=== PATIENT | female | born 1950 | race Caucasian/White ===

== ENCOUNTER 2023-09-25 12:19 | Inpatient (IN) | payer MEDICARE, OTHER ==
[2023-09-25 13:14] LABS: #Eosinphils 0.2 thou/uL (0.0-0.7); #Monocytes 0.7 thou/uL (0.11-0.59); %Basophils 0.6 % (0.0-1.0); %Eosinophils 2.6 % (0.0-10.0); %Lymphocytes 26.2 % (21.0-51.0); %Monocytes 9.9 % (0.0-10.0); %Neutrophils 60.4 % (42.0-75.0); Hematocrit 46.9 % (36.0-47.0); Hemoglobin 15.4 g/dL (12.0-16.0); Mean Corpuscular HGB CONC 32.8 g/dL (32.0-36.0); Mean Corpuscular Hemoglobin 28.8 pg (27.0-31.0); Mean Corpuscular Volume 87.8 fl (78.0-98.0); Mean Platelet Volume 11.1 fL (7.4-10.4); Platelet Count 252 10x3/uL (130-400); RBC Distribution Width 13.4 % (11.5-14.5); Red Blood Cell (RBC) Count 5.34 mill/uL (4.20-5.40); White Blood Cell (WBC) Count 6.7 10x3/uL (4.8-10.8)
[2023-09-25 13:32] LABS: ALT (SGPT) 23 U/L (8-55); AST (SGOT) 48 U/L (5-34); Albumin 3.8 g/dL (3.4-4.8); Alkaline Phosphatase 65 U/L (40-110); Anion Gap 19 mmol/L (10-20); BUN (Urea Nitrogen) 20 mg/dL (9.8-20.1); Bilirubin, Total 1.3 mg/dL (0.2-1.2); CK (CPK) 397 U/L (29-168); Calc. Creatinine Clearance 0 mL/min (70-130); Calcium 9.7 mg/dL (7.8-10.44); Carbon Dioxide 20 mmol/L (23-31); Chloride 105 mmol/L (98-107); Estimated GFR 74; Glucose 78 mg/dL (83-110); Potassium 4.5 mmol/L (3.5-5.1); Protein, Total 6.8 g/dL (5.8-8.1); Sodium 139 mmol/L (136-145)
[2023-09-25] MEDS ORDERED: Aspirin Chewable 81 MG TAB ONE (15:13)
[2023-09-25] MEDS ORDERED: Acetaminophen 325 MG TAB PO PRN (16:05)
[2023-09-25] MEDS ORDERED: Acetaminophen 650 MG Suppository PR PRN (16:05)
[2023-09-25 17:53] VITALS: BMI 30.9
[2023-09-25] MEDS: Escitalopram Oxalate 10 mg Tablet PO SCH (18:36)
[2023-09-25] MEDS: BuPROPion XL 150 MG ER.TAB PO SCH (18:36)
[2023-09-25] MEDS: Levothyroxine Sodium 50 MCG TAB PO SCH (18:36)
[2023-09-25 19:24] LABS: Hemoglobin A1c 5.4 % (4.0-6.0)
[2023-09-25 19:39] LABS: Magnesium 1.9 mg/dL (1.6-2.6); Phosphorus 2.6 mg/dL (2.3-4.7)
[2023-09-25 19:49] LABS: Troponin I 0.022 ng/mL (< 0.028)
[2023-09-25] MEDS: Atorvastatin Calcium 20 MG TAB PO SCH (21:09)
[2023-09-25] MEDS ORDERED: Ondansetron ODT 4 MG TAB PO PRN (22:58)
[2023-09-25] MEDS ORDERED: Ondansetron PF 4 MG/2 ML Vial IVP PRN (22:58)
[2023-09-25] MEDS ORDERED: Electrolyte Replacement Protocol 1 EACH FS SCH (23:00)
[2023-09-26] MEDS: Magnesium 2 GM/50 ML(in water) 2 GM in Premix 1 BAG IVPB SCH (00:54)
[2023-09-26 05:05] LABS: #Eosinphils 0.2 thou/uL (0.0-0.7); #Monocytes 0.6 thou/uL (0.11-0.59); #Neutrophils 3.1 thou/uL (1.40-6.50); %Basophils 0.6 % (0.0-1.0); %Eosinophils 3.8 % (0.0-10.0); %Lymphocytes 36.7 % (21.0-51.0); %Monocytes 9.8 % (0.0-10.0); %Neutrophils 48.9 % (42.0-75.0); Hematocrit 42.9 % (36.0-47.0); Hemoglobin 13.9 g/dL (12.0-16.0); Mean Corpuscular HGB CONC 32.4 g/dL (32.0-36.0); Mean Corpuscular Hemoglobin 29.7 pg (27.0-31.0); Mean Platelet Volume 12.2 fL (7.4-10.4); Platelet Count 225 10x3/uL (130-400); Red Blood Cell (RBC) Count 4.68 mill/uL (4.20-5.40); White Blood Cell (WBC) Count 6.3 10x3/uL (4.8-10.8)
[2023-09-26 05:09] LABS: Mean Corpuscular Volume 91.7 fl (78.0-98.0)
[2023-09-26] MEDS: Levothyroxine Sodium 50 MCG TAB PO SCH (06:19)
[2023-09-26 06:59] LABS: Troponin I 0.028 ng/mL (< 0.028)
[2023-09-26 07:03] LABS: Anion Gap 9 mmol/L (10-20); BUN (Urea Nitrogen) 15 mg/dL (9.8-20.1); Calc. Creatinine Clearance 87 mL/min (70-130); Calcium 8.7 mg/dL (7.8-10.44); Carbon Dioxide 23 mmol/L (23-31); Chloride 107 mmol/L (98-107); Estimated GFR 91; Glucose 95 mg/dL (83-110); Magnesium 2.3 mg/dL (1.6-2.6); Potassium 3.5 mmol/L (3.5-5.1); Sodium 135 mmol/L (136-145)
[2023-09-26] MEDS: Aspirin Chewable 81 MG TAB PO SCH (09:30)
[2023-09-26] MEDS: BuPROPion XL 150 MG ER.TAB PO SCH (09:30)
[2023-09-26] MEDS: Enoxaparin 40 MG (0.4 mL) SYRINGE SC SCH (09:30)
[2023-09-26] MEDS: Escitalopram Oxalate 10 mg Tablet PO SCH (09:37)
[2023-09-26] MEDS: Potassium Chloride 20 MEQ TAB PO SCH (09:37)
[2023-09-26] MEDS: Senokot S 8.6-50 MG TAB PO SCH (21:24)
[2023-09-28 05:45] LABS: Anion Gap 10 mmol/L (10-20); BUN (Urea Nitrogen) 8 mg/dL (9.8-20.1); Calc. Creatinine Clearance 85 mL/min (70-130); Calcium 8.7 mg/dL (7.8-10.44); Carbon Dioxide 27 mmol/L (23-31); Chloride 103 mmol/L (98-107); Estimated GFR 90; Glucose 103 mg/dL (83-110); Magnesium 1.9 mg/dL (1.6-2.6); Potassium 4.1 mmol/L (3.5-5.1); Sodium 136 mmol/L (136-145)
[2023-09-28] MEDS: Magnesium 2 GM/50 ML(in water) 2 GM in Premix 1 BAG IVPB SCH (08:59)
[2023-09-28] MEDS: Magnesium Oxide 400 MG TAB PO SCH ×2 (12:07→21:19)
[2023-09-30] MEDS: Benzonatate 100 MG CAP PO PRN (03:31)
[2023-09-30 11:42] VITALS: BP 197/93; TEMP 98.1
== END 2023-09-30 11:15 | disposition home health service (06) | DRG 57 ==
LOC: SUATTDRO 12:19 → ERS 12:19 → 2NO 15:52 → OBSVTOIN 09-27 09:45
PROVIDERS: ADMIT Family Medicine; ATTEND Internal Medicine
DX: G91.2 (Idiopathic) normal pressure hydrocephalus (principal); R45.851 Suicidal ideations; E78.5 Hyperlipidemia, unspecified; E03.9 Hypothyroidism, unspecified; I10 Essential (primary) hypertension; I25.10 Atherosclerotic heart disease of native coronary artery without angina pectoris; F32.A Depression, unspecified; R53.1 Weakness; R55 Syncope and collapse; L89.222 Pressure ulcer of left hip, stage 2; E87.6 Hypokalemia; E83.42 Hypomagnesemia; F41.9 Anxiety disorder, unspecified; Z88.5 Allergy status to narcotic agent; Z79.899 Other long term (current) drug therapy; Z79.82 Long term (current) use of aspirin; Z79.890 Hormone replacement therapy; Z95.5 Presence of coronary angioplasty implant and graft; Z95.1 Presence of aortocoronary bypass graft
CPT/HCPCS: 36415; 70450; 70551; 71045; 72125; 72128; 72131; 80048; 80053; 82550; 83036; 83735; 84100; 84443; 84484; 85025; 93005; 93306; 93880; 96365; 96372; 97139; G0378; J1650; J3475

== ENCOUNTER 2024-06-26 15:19 | Outpatient (CLI) | payer MEDICARE | END 2024-06-26 15:20 | disposition home or self-care (01) | LOC: BICMAMMO 15:19 | PROVIDERS: ATTEND Family Medicine | DX: Z78.0 Asymptomatic menopausal state (principal); M85.851 Other specified disorders of bone density and structure, right thigh | CPT/HCPCS: 77080 ==